=== PATIENT | male | born 1980 | race Caucasian/White ===

== ENCOUNTER 2016-06-19 13:45 | Observation (INO) | payer OTHER ==
[~2016-06-19] VITALS: Ht 188 cm; Wt 119.3 kg
--- NOTE | ~2016-06-19 | HP ---
PATIENT'S NAME: KAVITHA [facility] AGE: 35 Y [address] ROOM: [place] [id number] LOCATION: [facility] ADMIT DATE: 06/19/2016 History & Physical DISCHARGE DATE: FAMILY PHYSICIAN: PHYSICIAN, UNKNOWN ATTENDING PHYSICIAN: ISELA TRISTAN V DATE OF SERVICE: CHIEF COMPLAINT: Postoperative pain. 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 He has had prior laminectomies in the past. Today, he has undergone an elective stem cell injection into his L3, L4, L5, and L2 intervertebral discs. Subsequent to the procedure, the patient was in a considerable amount of pain and was unable to ambulate and go home. He characterizes this pain is considerably worse than the baseline symptoms that he gets from his degenerative spine disease/radiculopathy. He further clarifies this as a sharp pain as well as bilateral muscle spasms. He [facility] f[facility] where he did get relief for his pain, but he did not get relief for the spasms. He denies any chest pain, shortness of breath, nausea, vomiting, diarrhea, or palpitations. REVIEW OF SYSTEMS: All systems have been reviewed and negative aside from pertinent positives as mentioned above. PAST MEDICAL HISTORY: Significant for degenerative spine disease as above. SURGICAL HISTORY: Significant for prior laminectomies in the lumbar region. CURRENT MEDICATIONS: 1. Cyclobenzaprine. 2. Hydrocodone/acetaminophen two tablets at night. 3. [place]-3 fatty acids. 4. Juice Plus. FAMILY HISTORY: PATIENT'S NAME: KAVITHA [facility] AGE: 35 Y [address] ROOM: [id number] [place] [id number] LOCATION: [facility] ADMIT DATE: 06/19/2016 History & Physical DISCHARGE DATE: FAMILY PHYSICIAN: PHYSICIAN, UNKNOWN ATTENDING PHYSICIAN: ISELA TRISTAN V The patient denies any remarkable family history. SOCIAL HISTORY: The patient denies any ongoing toxic habits. He is , with children. PHYSICAL EXAMINATION: VITAL SIGNS: His blood pressure is 140/78, heart rate is in 90s, saturating 96% on room air, respirations are 12, he is afebrile. GENERAL: Appears as a well-developed, well-nourished, young male, in mild amount of distress from his pain. NEUROLOGICAL: Nonfocal. EYE: Shows pupils are equal and reactive to light. LYMPHATIC: Shows no cervical lymphadenopathy. ENDOCRINE: Shows no thyromegaly. LUNGS: Clear to auscultation. HEART: Shows regular rate and rhythm. GI: Shows abdomen is soft, nontender. : Reveals no costovertebral angle tenderness VASCULAR: Reveals 2+ pedal pulses. SKIN: Warm and dry. MUSCULOSKELETAL: Shows some paraspinal muscle tenderness and multiple Band- Aids/bandages in lumbar sacral region. PSYCHIATRIC: Reveals a very pleasant affect, mood, and preserved cognition. LABORATORY DATA: No lab studies are available. ASSESSMENT AND PLAN: This is a 35-year-old male who was admitted for pain control after intraspinal disc injection of stem cells. We will start the patient on p.r.n. pushes of morphine. Based on my history, he is actually quite opioid naive as he only takes two Norcos at bedtime. As such, we have to be careful about over sedating him. We will control his pain with above-mentioned morphine and provide him with Skelaxin for muscle spasms. If we are not able to achieve improved symptom control with these, we will consider gentle doses of Valium for muscle spasms, though at this point, I would like to be more conservative given again opioid/benzo non-exposure in the past. We will also put the patient on a bowel regimen as he is expected to develop constipation with these opioid regimens. If he does not improve in the course of the night, we will consider a followup with Dr. Zepeda versus additional imaging. PATIENT'S NAME: ROSEANNA GIL [facility] AGE: 35 Y [address] ROOM: [place] [id number] LOCATION: [facility] ADMIT DATE: 06/19/2016 History & Physical DISCHARGE DATE: FAMILY PHYSICIAN: PHYSICIAN, UNKNOWN ATTENDING PHYSICIAN: ISELA TRISTAN V Time dedicated to the patient's encounter is 25 minutes. MD JOHNNIE RAMIREZ/azk /[id number] D: [id number] T: [id number] HISTORY & PHYSICAL
--- NOTE | ~2016-06-19 | DS ---
PATIENT'S NAME: ROSEANNA GIL [facility] AGE: 35 Y [address] ROOM: [facility] [address] [place], [place] [address] LOCATION: [facility] ADMIT DATE: 06/19/2016 Discharge Summary DISCHARGE DATE: 06/20/2016 FAMILY PHYSICIAN: Pk Lackey MD ATTENDING PHYSICIAN: Ray Howard V DISCHARGE DIAGNOSES: 1. Severe postoperative back pain. 2. Severe degenerative joint disease of the lumbar spine. PROCEDURES: 1. The patient described he had stem cell injection in multiple disk sites of the lumbar spine. I do not have an op note to read from. 2. The patient was seen and operated on in an outpatient surgery yesterday, but had pain to the extent that he could not walk. The pain was severe and uncontrolled, so he was admitted yesterday afternoon. 3. With IV pain medications, it caused nausea and subsequently antinausea medications. The patient's condition improved rapidly over the subsequent 24 hours and he was ready to be discharged today. LABORATORY DATA: None. RADIOLOGY: None. HOSPITAL COURSE: One of rapid improvement as mentioned above. He will be discharged on medications per the nursing med recon form. Diet will be as tolerated. Recommend low-fat, so it does not increase nausea. Activity will be as tolerated and per Physical Therapy. Followup will be in the next week with his surgeon. Note that discharge time was greater than 30 minutes. MD NICOLE ONEIL/modl /[id number] d: 06/21/16 0431 t: 06/22/16 174, DISCHARGE SUMMARY
[2016-06-19] MEDS ORDERED: FISH OIL 1,0001 EACH PO (14:36)
[2016-06-19] MEDS ORDERED: NORCO 10-325 T1 EACH PO (14:36)
[2016-06-19] MEDS ORDERED: FLEXERIL10 MG PO (14:37)
[2016-06-19] MEDS ORDERED: JUICE PLUS PO (14:38)
--- NOTE | 2016-06-19 15:14 | NUR ---
Patient is 35 yo male admitted after surgery at surgery center. patient has been having pain in his back. is getting diagnostics done to be able to have surgery again, with possible implantation of artificial disks. he was planning to go to [facility] for evaluation as well. today the diskography was done, with implantation of stem cells in 3 disk areas. patient was not able to recover to go home. is having pain and unable to walk. saline lock is patent in left hand without erythema or edema noted at site. Education is given as documented. patient denies questions. pneumatics are on bilat calves. patient serafin well. call light is within reach. patient denies needs at this time. report is given to CARLOS Lozano.
--- NOTE | 2016-06-19 17:40 | NUR ---
Significant Event: PT ADMITTED TO THE FLOOR FOR POST-PROCEDURE PAIN CONTROL. PT HAD A SCHEDULED LUMBAR DISCOGRAPHY STEM CELL PROCEDURE DONE BY AN OUTPATIENT AND WAS HAVING SEVERE PAIN. HX BACK SURGERIES, OTHERWISE PT IS VERY HEALTHY. PT IS ALERT AND ORIENTED X3. NEURO CHECKS WNL. HAS NOT BEEN ABLE TO GET OUT OF BED DUE TO PAIN. ABLE TO REPOSITION SELF IN BED. IV TO L)HAND SALINE LOCKED. REGULAR DIET. ACTIVITY TOLERATED. IV MORPHINE GIVEN AT 1537. 1 PERCOCET GIVEN AT 1602. HAS HAD SOME PAIN RELIEF. LIKES PILLOWS UNDER HIS LEGS. NO COMPLAINTS OF NAUSEA. PT'S LEFT UPON ADMISSION. Follow up: PAIN CONTROL.
--- NOTE | 2016-06-20 04:14 | NUR ---
Significant Event: A&Ox3. Neuro's intact. L) leg is weaker than R) leg. Patient states that the L) leg is the leg that has been effected from his back for a while. On morphine GEAR GRINDER for pain 1mg demand with 8 minute lockout. Patient had 25 demands with 24 delivered during the night. On tele SR. VSS. Placed on 2L of O2 during the night due to patient dropping in low 80s when sleeping. Drsg to back C/D/I. IV to L) hand running GEAR GRINDER. at bedside very helpful. Pt was able to get up and ambulate in the halls a couple of times during the night. Up 1A GBW. Follow up:
--- NOTE | 2016-06-20 15:33 | NUR ---
Introduced self and role of care management to patient, his and a brother in law. Patient lives in [place] with their 3 year old twin sons. They plan on going home when he is ready for discharge. Told them therapy said he would need a walker. She says she contacted their pharmacy in [place] and they are renting a walker from them. She says her father in law was going to go pick it up. She says she is working on finding family and friends to help watch the boys for a few days so Vinny can rest when they get home. They deny discharge needs at this time. Will follow.
[2016-06-20] MEDS ORDERED: SKELAXIN800 MG PO (16:51)
[2016-06-20] MEDS ORDERED: SENNA-S TABLET1 EACH PO (16:52)
[2016-06-20] MEDS ORDERED: ZOFRAN4 MG PO (16:53)
[2016-06-20] MEDS ORDERED: PHENERGAN25 MG R (16:56)
[2016-06-20] MEDS ORDERED: PERCOCET 5-3251 EACH PO ×2 (17:01→17:02)
--- NOTE | 2016-06-20 18:58 | NUR ---
written and verbal dismissal instructions given to pt. and including diet, activity, prescriptions, incision care, blood clot prevention, and follow up care. verbalized understanding, escrorted per w/c to ride home in stable condition.
== END 2016-06-20 19:15 | disposition disaster alternative care site (69) ==
LOC: EDSTATUS 13:45 → GNTU 14:30
PROVIDERS: ADMIT Internal Medicine
DX: G89.18 Other acute postprocedural pain (principal); M47.896 Other spondylosis, lumbar region; M96.1 Postlaminectomy syndrome, not elsewhere classified; Z79.899 Other long term (current) drug therapy
CPT/HCPCS: G0378; J2270; J2405; J2550; J7120

== ENCOUNTER → 2016-06-19 | Outpatient (CLI) | payer OTHER ==
[~2016-06-19] MED LIST: FISH OIL 1,0001 EACH PO; FLEXERIL10 MG PO; JUICE PLUS PO; NORCO 10-325 T1 EACH PO; PERCOCET 5-3251 EACH PO; PHENERGAN25 MG R; SENNA-S TABLET1 EACH PO; SKELAXIN800 MG PO; ZOFRAN4 MG PO
== END | disposition disaster alternative care site (69) ==
LOC: GAMB 13:49
DX: M54.9 Dorsalgia, unspecified (principal); G89.29 Other chronic pain; Z79.891 Long term (current) use of opiate analgesic; Z79.899 Other long term (current) drug therapy
CPT/HCPCS: A0425; A0427; J3010